=== PATIENT | female | born 1960 | race African-American/Black ===

== ENCOUNTER 2016-11-05 10:50 | Day surgery (SDC) | payer OTHER ==
[~2016-11-05] VITALS: Ht 160 cm; Wt 76.2 kg
[~2016-11-05 10:50] MED LIST: ASPI-110 PO; CARV25TA PO; FURO40TA PO; LISI40TA PO; LOSA50TA PO; POTA2.5T PO; SLOW50TA PO; SPIR25TA PO
[2016-11-05] MEDS ORDERED: POTA-243 PO (11:27)
[2016-11-05] MEDS ORDERED: ASPI325T PO (11:27)
[2016-11-05 11:28] VITALS: BP 137/89; PULSE 68; RESP 16; TEMP 98; O2SAT 100
[2016-11-05 11:42] LABS: AUTOMATED NEUTROPHIL # 3.3 TH/MM3 (1.8-7.7); BASOPHIL % 0.6 % (0.0-2.0); EOSINOPHIL # 0.1 TH/MM3 (0-0.4); EOSINOPHIL % 1.4 % (0.0-4.0); HEMATOCRIT 32.4 % (35.0-46.0); HEMO FLAGS DIFF FINAL; LYMPHOCYTE # 2.1 TH/MM3 (1.0-4.8); MEAN CELL VOLUME 88.6 FL (80.0-100.0); MEAN CORPUSCULAR HEMOGLOBIN 29.4 PG (27.0-34.0); MEAN CORPUSCULAR HGB CONC 33.2 % (32.0-36.0); MONO % 6.8 % (0.0-8.0); NEUT % 56.2 % (16.0-70.0); PLATELET COUNT 235 TH/MM3 (150-450); RED BLOOD COUNT 3.65 MIL/MM3 (4.00-5.30); RED CELL DISTRIBUTION WIDTH 13.6 % (11.6-17.2); WHITE BLOOD COUNT 5.9 TH/MM3 (4.0-11.0)
[2016-11-05 11:49] LABS: APTT (PATIENT) 26.3 SEC (24.3-30.1); PROTHROMBIN TIME - PATIENT 10.7 SEC (9.8-11.6)
[2016-11-05 12:07] LABS: BICARBONATE 26.4 MEQ/L (21.0-32.0); POTASSIUM 4.5 MEQ/L (3.5-5.1)
[2016-11-05] MEDS ORDERED: VANCOMYCIN HCL 1000 MG VIAL ONE (12:42)
[2016-11-05] MEDS ORDERED: SODIUM CHLOR 0.9% 250 ML INJ 250 ML ONE (12:42)
[2016-11-05] MEDS ORDERED: LIDOCAINE HCL 2% 50 ML VIAL ONE (12:42)
[2016-11-05] MEDS ORDERED: ceFAZolin INJ 1,000 MG VIAL ONE (12:42)
[2016-11-05] MEDS ORDERED: VANCOMYCIN 500 MG VIAL ONE (12:42)
[2016-11-05] MEDS ORDERED: SODIUM CHLORID 0.9% 500 ML IV PRN (12:45)
[2016-11-05] MEDS ORDERED: METOPROLOL TARTRATE 25 MG TAB PO PRN (12:45)
[2016-11-05] MEDS ORDERED: CHLORHEXIDINE GLUCONATE 2 % 1 PACK (2 CLOTHS) TOPICAL SCH (12:45)
[2016-11-05] MEDS ORDERED: VANCOMYCIN 1000 MG/NS 250 ML IV SCH ×2 (12:45)
[2016-11-05] MEDS ORDERED: INSULIN HUMAN REGULAR 1,000 UNITS/10 ML VIAL SQ PRN (12:45)
[2016-11-05] MEDS ORDERED: NS 1000 ML IV SCH (12:45)
[2016-11-05] MEDS ORDERED: CHLORHEXIDINE GLUCONATE 2 % 1 PACK (2 CLOTHS) TOPICAL PRN (12:45)
[2016-11-05] MEDS ORDERED: MUPIROCIN 2% OINT 1 APPLIC/GM SYR NASAL SCH (12:45)
[2016-11-05] MEDS ORDERED: POVIDONE IODINE 5% (ANTISEPSIS KIT) 4 APPLICATIONS EACH NARE SCH (12:45)
[2016-11-05] MEDS ORDERED: ceFAZolin 2 GM PREMIX 50 ML IV SCH (12:45)
[2016-11-05] MEDS ORDERED: POVIDONE IODINE 5% (ANTISEPSIS KIT) 4 APPLICATIONS EACH NARE PRN (12:45)
[2016-11-05] MEDS ORDERED: LACTATED RINGER'S 1000 ML IV PRN (12:45)
--- NOTE | 2016-11-05 12:45 | EKG ---
Date Performed: 11/05/2016 Time Performed: 11:37:20 PTAGE: 56 years EKG: Sinus rhythm with borderline 1st degree A-V block Left ventricular hypertrophy Inferior/lateral T wave changes ar e probably due to ventricular hypertrophy Abnormal ECG PREVIOUS TRACING : 12/21/2008 13.26 DOCTOR: Asim Montes Interpretating Date/Time 11/05/2016 12:44:15
[2016-11-05] MEDS ORDERED: MIDAZOLAM HCL 2 MG/2 ML VIAL ONE (14:25)
--- NOTE | 2016-11-05 14:30 | CATHPROC ---
[employer] HIS Report Study Information Study Number Admission Scheduled Start Study Start [id number] Nov 05 2016 10:50AM 11/05/2016 Nov 05 2016 12:21PM [place] Service Cardiac Pacer/ICD Admit Source Facility Department Other [facility] - Software Architect Physician and Clinical Staff Initial Neal Miranda Unloading Checker Manuel Hendricks,RT(R) Other Anesthesia, GIS MAPPING TECHNICIAN Recorder Phoebe Barajas,TANNER Scrub Jen Joaquin RCIS Equipment Time Natural Gas Engineer Description Size Mfg Part Number Used/Scraped [id number] 13:09 [employer] SUTURE, STRIP PLUS 1/2" * Used *[id number] 13:09 MEDLINE PACER ADHESIVE, MASTISOL 2/3CC 2/3CC 0523-48 Used 13:09 MEDLINE PACER VELEZ, LIMB * 2530 *[id number] Used [id number] 13:09 [employer] PACER PACK, PACER CUSTOM * Used *[id number] 13:09 MEDLINE PACER PEN, SKIN DUAL W/ RULER * Used *[id number] PROBE COVER, STERILE [id number] 13:09 [employer] * Used ULTRASOUND W/ GEL *[id number] 13:15 Needle Sponge Count 1 1 Used 13:15 Needle Sponge Count 1 111 Used 13:15 Needle Sponge Count 30 1 Used [id number] *[id number] 8066-54 *[id number] SUTURE, 0 SILK [CT1] (CO21D), 8pk SUTURE, 3-0 MONOCRYL [SH] (Y316H) SUTURE, 3-0 MONOCRYL [SH] (Y316H) SUTURE, 4-0 MONOCRYL [PS2] (Y496G) SUTURE, 4-0 MONOCRYL [PS2] (Y496G) [id number] 13:09 [facility] BLANKET,WARM AIR CCL * Used *[id number] [facility] PAD, ELECTROSURGICAL 13:09 * [id number] *[id number] Used SURGICAL GROUNDING ORANGE 13:46 [employer] DEFIBRILLATOR, VISIA AF MRI VR [id number] Used 14:29 [employer] PLASMABLADE, PEAD 3.0S * [id number] Used [id number] 13:09 [employer] RAMYA. ELECTRODE, PRO-PADZ BIPHASIC * Used *[id number] Equipment Model, Serial, Lot Number and Expiration Data Description Model Number Serial Number Lot Number Expiration Date DEFIBRILLATOR, VISIA AF MRI VR [id number] 02-14-2017 History: Risk Factors Family History of Hypertension Dyslipidemia Previous SC Previous Heart Failure Premature CAD Yes No No No No Prior Valve Prior PCI Prior CABG Surgery No No No Cerebrovascular Peripheral Artery Chronic Lung On Dialysis Diabetes Disease Disease Disease No No No No No Medication Medication Total Dose (Bolus/Oral) Medication Total Dosage/Unit 2% XYLOCAINE 50 mL Medications (Bolus/Oral) Medication Time Given Dosage/Unit Administered By Reason 2% XYLOCAINE 11/05/2016 1:37:19 PM 50 mL Neal Nicole 50 mL 2% XYLOCAINE given in lab by Neal Nicole in Left shoulder via Subcutaneous. Ordered by Neal Gomes. RIGHT UPPER CHEST Medication (Drip) Medication Time Given Dosage/Unit Concentration/Unit Diluent (ml) Solution ANCEF 11/05/2016 1:05:37 PM 2 g 2 g ANCEF given in lab by Anesthesia, GIS MAPPING TECHNICIAN in Right Antecubital via Peripheral IV. Ordered by Neal Nicole. VANCOMYCIN DRIP 11/05/2016 1:05:00 PM 1 g 1 g VANCOMYCIN DRIP given in lab by Anesthesia, GIS MAPPING TECHNICIAN in Left Antecubital via Peripheral IV. Ordered b y Neal Nicole. Initial Case Assessment Cardiovascular HR Rhythm NIBP Chest Pain 84 sr 137/68 0 Edema Present Skin color Skin None Normal Warm Dry Circulatory - Right Pulses Dorsalis Pedis 1 Scale (0,1,2,3,4,d) Circulatory - Left Pulses Dorsalis Pedis 1 Scale (0,1,2,3,4,d) Neurological State Oriented to time-place- Alert Moves all extremities person Respiration - General Respiration Rate SpO2 (%) O2 (lpm) (B/min) 18 96 2 Final Case Assessment Cardiovascular HR Rhythm NIBP Chest Pain 88 SR 126/78 0 Edema Present Skin color Skin None Normal Warm Dry Circulatory - Right Pulses Dorsalis Pedis 2 Scale (0,1,2,3,4,d) Circulatory - Left Pulses Dorsalis Pedis 2 Scale (0,1,2,3,4,d) Neurological State Oriented to time-place- Alert Moves all extremities person Respiration - General Respiration Rate SpO2 (%) (B/min) 18 96 Chronological Log Time Study Chronological Log 12:35:33 Patient arrived via Bed. 12:35:50 Patient Name, D.O.B, / Armband Verified By R.N. 12:40:45 Anesthesia at bedside. Assumes care of patient. 12:45:00 Verbal Stimulation=2 Physical Stimulation=2 Airway=2 Respiration=2 TOTAL=8. (0=absent, 1=li mited, 2=present) 12:50:00 Patient has been NPO for More than 6Hrs. 12:50:00 Skin Breakdown- none per patient 12:55:00 Patient Warmer Placed on the Table. 12:55:00 Disposable Defibrillator Pads Placed On Patient. 12:55:00 Amanda Prominences Protected 12:56:00 IV Warmer Connected To Patient. 1 g VANCOMYCIN DRIP given in lab by Anesthesia, GIS MAPPING TECHNICIAN in Left Antecubital via Peripheral IV. Ord ered by Bonnie 13:05:00 Neal. 13:05:37 2 g ANCEF given in lab by Anesthesia, GIS MAPPING TECHNICIAN in Right Antecubital via Peripheral IV. Ordered by Neal Nicole. 13:10:15 Reference ECG taken 13:13:08 A # 20 IV was noted in the Antecubital (left). Grade = 0 13:13:29 A # 20 IV was noted in the Antecubital (right). Grade = 0 13:13:36 History and physical on the chart or being dictated. Assessment: Initial Case, HR=84 BPM, Rhythm=sr, PUGX=588/68 mmhg, Chest Pain=0, Edema=None, Col or=Normal, Skin = Warm, Dry Right Pulses: Jose Alfredo Ped=1 13:13:38 Left Pulses: Jose Alfredo Ped=1 Neurological: State=Alert, Ox3, SORIANO Respiration: Resp=18 B/min, SpO2=96 %, O2=2 lpm 13:14:23 Table restraints applied according to hospital policy 13:14:26 Left Upper Chest Prepped Times Two. 13:14:35 Bovie ground pad applied to: right thigh 13:14:41 2% CHLORHEXIDINE GLUCONATE WASH AND NASAL SWIPE DONE PRIOR TO PROCEDURE. First Sponge And Instrument Count Done by Manuel Hendricks, RT(R). 13:14:42 Hypo's: 1, Sponges: 30, Bovie/scratch: 1 Sutures: 4, Blades: 2, Instruments: 26, Syveck Patches: ~SYVECK PATCH~ verified by FRANCY F 13:18:25 MD paged :: responded Time Out. Correct patient, procedure, procedure equipment, site and side verified with physicia n present. Time 13:36:25 concurred by MD, individual staff and GIS MAPPING TECHNICIAN. Time Out #2 - Consents verified, patient in correct position, all results are labled and displa yed, safety precautions 13:36:31 taken, antibiotics administered. Time out concurred by MD, individual staff and GIS MAPPING TECHNICIAN in procedu re 13:36:33 Case Start 50 mL 2% XYLOCAINE given in lab by Neal Nicole in Left shoulder via Subcutaneous. Ordered by Bonnie, 13:37:19 Neal. RIGHT UPPER CHEST 13:38:03 Surgical Incision Made. 13:46:03 A pocket was created at the L Upper Chest. 13:46:09 A device was explanted. 13:49:05 A DEFIBRILLATOR, VISIA AF MRI VR VVEVVIR was connected and placed in the pocket. 13:51:30 Pocket flushed with antibiotic solution SECOND Sponge And Instrument Count Done by Manuel Hendricks, RT(R). 13:54:24 Hypo's: 1, Sponges: 30, Bovie/scratch: 1 Sutures: 4, Blades: 2, Instruments: 26, Syveck Patches: ~SYVECK PATCH~ verified by FRANCY F 13:55:16 The pocket was closed. 14:10:00 Case End 14:18:54 Steri-strips and a sterile dressing applied to site. FINAL Sponge And Instrument Count Done by Manuel Hendricks RT(R). 14:19:00 Hypo's: 1, Sponges: 30, Bovie/scratch: 1 Sutures: 4, Blades: 2, Instruments: 26, Syveck Patches: ~SYVECK PATCH~ verified by FRANCY F Assessment: Final Case, HR=88 BPM, Rhythm=SR, FOXV=968/78 mmhg, Chest Pain=0, Edema=None, Color =Normal, Skin = Warm, Dry Right Pulses: Jose Alfredo Ped=2 14:23:04 Left Pulses: Jose Alfredo Ped=2 Neurological: State=Alert, Ox3, SORIANO Respiration: Resp=18 B/min, SpO2=96 % 14:23:06 Sterile dressing applied to site 14:23:07 No case complications noted. 14:23:08 Cine recording checked. 14:23:09 Bedside Report will be given. 14:23:10 Implantable Device card placed in patient's chart. 14:23:11 DOCU called. Spoke to SAY 14:27:28 Defibrillator and ground pads removed. Skin intact. 14:37:29 Patient moved to stretcher End Study - Contrast Media Used In Study Contrast Total Opened (mL) Total Used (mL) Total Wasted (mL) Unspecified 0 0 0 End Study - Radiation Exposure Fluoro Time (minutes) 0.0 End Study - Patient Disposition Complications Transferred To Interventional Outcome No Telemetry Bed successful
[2016-11-05] MEDS ORDERED: PROPOFOL 200 MG/20 ML AMP IV ONE (17:18)
--- NOTE | 2016-11-06 07:52 | MP ---
cc: NEAL NICOLE M.D. DATE OF SURGERY PROCEDURE PERFORMED Single chamber ICD replacement. INDICATION Pulse generator MIKE. Initial implant was for cardiac arrest. CONSENT A fully informed consent was obtained prior to the procedure. The risks of , bleeding, myocardial infarction, perforation, aspiration, foreseen and unforeseen complications were reviewed. The patient fully appeared to understand. PROCEDURAL STATEMENT The patient was draped and prepped in the usual manner. The left infraclavicular was carefully infiltrated with lidocaine. Anesthesia was given as per the Anesthesia Department. Using a plasma knife, blunt and sharp dissection, the pulse generator pocket was opened in the usual manner. The defibrillator was removed. The new defibrillator was connected to the respective leads. The set screws were tightened, but not over tightened. The pocket was flushed with vancomycin solution. The pocket was then closed in three layers. CONCLUSION Successful change out of single chamber ICD. PLAN Plan to discharge the patient later today. We will follow up in my office in one to two weeks time. Note, system used was an electronic system. Neal Nicole MD, CP,[facility] /2:34 PM /7:43 AM
== END 2016-11-05 17:31 | disposition home or self-care (01) ==
LOC: HDIC 10:50 → HCAT 10:50
PROVIDERS: ATTEND Internal Medicine Cardiovascular Disease
DX: Z45.02 Encounter for adjustment and management of automatic implantable cardiac defibrillator (principal); Z86.74 Personal history of sudden cardiac arrest; I44.0 Atrioventricular block, first degree; I51.7 Cardiomegaly; R94.31 Abnormal electrocardiogram [ECG] [EKG]
CPT/HCPCS: 33262; 80048; 85025; 85610; 85730; 93005; C1722; J0690; J2250; J3010; J3370; J7050